=== PATIENT | male | born 1995 | race Caucasian/White ===

== ENCOUNTER 2020-01-04 21:37 | Emergency (ER) | payer MEDICAID ==
--- NOTE | 2020-01-04 22:18 | EDM.PDOC ---
ED HPI GENERAL MEDICAL PROBLEM - General Chief Complaint: Chest Pain Stated Complaint: CHEST PAIN Time Seen by Provider: 01/04/20 22:03 Source of Information: Reports: Patient, RN Notes Reviewed History Limitations: Reports: No Limitations - History of Present Illness INITIAL COMMENTS - FREE TEXT/NARRATIVE: 24-year-old gentleman presents emergency department a complaint of pain over his left pectoral muscle and into his left shoulder states been going on for about 3days worse when he takes a deep breath and exhales he does admit to doing a flip and landing on that shoulder about 3 days ago which may have something to do with this. No shortness of breath no use of tobacco products no cardiac history no nausea vomiting no diaphoresis Chest Pain Score (Numeric/FACES): 5 - Related Data Allergies Allergy/AdvReac Type Severity Reaction Status Date / Time No Known Allergies Allergy Verified 02/28/14 17:39 Home Meds: Home Meds NK [No Known Home Meds] 02/28/14 [History] Past Medical History - Past Health History Medical/Surgical History: Denies Medical/Surgical History Social & Family History - Tobacco Use Smoking Status *Q: Never Smoker Second Hand Smoke Exposure: Yes - Caffeine Use Caffeine Use: Reports: Coffee, Soda - Recreational Drug Use Recreational Drug Use: No ED ROS GENERAL - Review of Systems Review Of Systems: See Below Constitutional: Reports: No Symptoms HEENT: Reports: No Symptoms Respiratory: Reports: No Symptoms Cardiovascular: Reports: Chest Pain GI/Abdominal: Reports: No Symptoms : Reports: No Symptoms Musculoskeletal: Reports: Shoulder Pain ED EXAM, GENERAL - Physical Exam Exam: See Below Exam Limited By: No Limitations General Appearance: Alert, WD/WN, No Apparent Distress Neck: Normal Inspection, Supple, Non-Tender, Full Range of Motion Respiratory/Chest: No Respiratory Distress, Lungs Clear, Normal Breath Sounds, No Accessory Muscle Use, Chest Non-Tender Cardiovascular: Regular Rate, Rhythm, No Murmur Extremities: Normal Inspection, Normal Range of Motion, Non-Tender Course - Vital Signs Last Recorded V/S: Last Vital Signs Temp 99.0 F 01/04/20 21:56 Pulse 93 01/04/20 21:56 Resp 16 01/04/20 21:56 BP 133/85 01/04/20 21:56 Pulse Ox 99 01/04/20 21:56 Departure - Departure Time of Disposition: 22:17 Disposition: Home, Self-Care 01 Condition: Fair Clinical Impression: Atypical chest pain - Discharge Information Instructions: Nonspecific Chest Pain, Adult, [id number] Referrals: PCP,None [Primary Care Provider] - Additional Instructions: Try ibuprofen or Tylenol as needed for pain control, please followup with your primary care provider in 3-5 days if not better, please call return to the emergency department with worsening of symptoms. Sepsis Event Note - Evaluation Sepsis Screening Result: No Definite Risk - Focused Exam Vital Signs: Vital Signs Temp Pulse Resp BP Pulse Ox 01/04/20 21:56 99.0 F 93 16 133/85 99 01/04/20 21:52 99.0 F 93 16 133/85 99 Date Exam was Performed: 01/04/20 Time Exam was Performed: 22:14 - Assessment/Plan Plan: Assessment Acuity = acute Site and laterality = atypical chest pain Etiology = probably related to recent trauma with a shoulder injury Manifestations = none Location of injury = Home Lab values = none Plan I did talk to him about further evaluation including blood work EKG he declined at this time he did get some improvement from an inflammatory type product he is going to continue with ibuprofen try and rest at work and do a different type of job and then follow-up primary care 3 to 5 days if not better This note was dictated using [employer] voice recognition software please call with any questions on syntax or grammar.
== END 2020-01-04 22:25 | disposition home or self-care (01) ==
LOC: JP.ED 21:37
DX: R07.89 Other chest pain (principal); Z77.22 Contact with and (suspected) exposure to environmental tobacco smoke (acute) (chronic)
CPT/HCPCS: 99284